=== PATIENT | female | born 1945 | race Caucasian/White ===

== ENCOUNTER → 2023-10-04 06:22 | Day surgery (SDC) | payer OTHER, SELFPAY ==
[2023-10-04 13:46] LABS: Glucose - Point of Care 126 mg/dl (70-99)
== END ==
LOC: GI 06:22
PROVIDERS: ATTENDING PHYSICIAN Internal Medicine Gastroenterology; FAMILY PHYSICIAN Physician Assistant
DX: D50.9 Iron deficiency anemia, unspecified (principal); K64.8 Other hemorrhoids; D49.0 Neoplasm of unspecified behavior of digestive system; Q43.8 Other specified congenital malformations of intestine; K63.5 Polyp of colon; R63.4 Abnormal weight loss; K44.9 Diaphragmatic hernia without obstruction or gangrene; K31.89 Other diseases of stomach and duodenum; K29.50 Unspecified chronic gastritis without bleeding; K31.A0 Gastric intestinal metaplasia, unspecified; Z85.038 Personal history of other malignant neoplasm of large intestine; K63.89 Other specified diseases of intestine
CPT/HCPCS: 45380; 43239; 88305; 82962; 88342

== ENCOUNTER 2023-12-20 06:26 | Day surgery (SDC) | payer OTHER, SELFPAY ==
[2023-12-20 10:21] LABS: Glucose - Point of Care 181 mg/dl (70-99)
[2023-12-20 10:25] VITALS: BMI 18.3
[2023-12-20 10:27] VITALS: BMI 18.3
[2023-12-20 10:29] VITALS: BP 124/81
[2023-12-20 12:08] VITALS: BP 151/107
[2023-12-20 12:10] VITALS: BP 155/101
[2023-12-20 12:15] VITALS: BP 153/90
[2023-12-20 14:00] VITALS: BP 134/97
[2023-12-20 14:15] VITALS: BP 160/98
[2023-12-20 14:21] LABS: Glucose - Point of Care 98 mg/dl (70-99)
== END 2023-12-20 14:50 | disposition home or self-care (01) ==
LOC: SDS 06:26
PROVIDERS: ATTENDING PHYSICIAN Internal Medicine Gastroenterology
DX: D12.2 Benign neoplasm of ascending colon (principal); K64.0 First degree hemorrhoids; Q43.8 Other specified congenital malformations of intestine
CPT/HCPCS: 45390; 88305; 82962; 93005